=== PATIENT | female | born 1955 | race Caucasian/White ===

== ENCOUNTER 2017-02-12 17:07 | Observation (INO) | payer OTHER ==
[~2017-02-12] VITALS: Ht 152.4 cm; Wt 56.0 kg
[2017-02-12 18:30] VITALS: BP 126/86
[2017-02-12] MEDS: BUSPIRONE 10 MG TABLET PO SCH (21:30)
[2017-02-12] MEDS: LORazepam 2 MG/ML, 1ML IVPush PRN (21:31)
[2017-02-13] MEDS ORDERED: BUSP10TA PO (00:47)
[2017-02-13] MEDS ORDERED: CLON-364 PO (00:53)
[2017-02-13] MEDS ORDERED: LORA2TAB PO (00:55)
[2017-02-13] MEDS ORDERED: NABU500T PO (00:55)
[2017-02-13] MEDS ORDERED: HYDROcodone/APAP 5/325 TABLET PO PRN (01:00)
[2017-02-13] MEDS ORDERED: ONDANSETRON ODT 4 MG PO PRN (01:00)
[2017-02-13 02:15] VITALS: BP 107/73
[2017-02-13 03:30] VITALS: BP 112/76
[2017-02-13] MEDS: LORazepam 2 MG/ML, 1ML IVPush PRN (04:33)
[2017-02-13 06:07] LABS: HEMATOCRIT 39.6 % (34.6-47.8); HEMOGLOBIN 13.7 g/dL (11.7-16.4); WHITE BLOOD COUNT 11.1 x10^3/uL (3.4-10)
[2017-02-13 06:17] LABS: BLOOD UREA NITROGEN 9 mg/dL (7-18)
[2017-02-13 06:28] LABS: ASPARTATE AMINO TRANSFERASE 21 U/L (15-37)
[2017-02-13 07:00] VITALS: BP 110/78
[2017-02-13] MEDS: BUSPIRONE 10 MG TABLET PO SCH ×2 (09:36→20:26)
[2017-02-13] MEDS: CIPROFLOXACIN 500 MG TABLET PO SCH ×2 (09:36→20:26)
[2017-02-13 12:27] VITALS: BP 98/62
[2017-02-13 14:28] LABS: PATH.CAST-FLAG NOT PRESENT; SPERM-FLAG NOT PRESENT; SRC-FLAG NOT PRESENT; XTAL-FLAG NOT PRESENT; YLC-FLAG NOT PRESENT
[2017-02-13] MEDS ORDERED: ZIPRASIDONE 20 MG INJ IM PRN (16:30)
[2017-02-13] MEDS: OMEPRAZOLE 20 MG CAPSULE.DR PO SCH ×2 (16:37→20:26)
[2017-02-13 20:24] VITALS: BP 104/60
[2017-02-13] MEDS: ACETAMINOPHEN 325 MG TABLET PO PRN (20:26)
[2017-02-13] MEDS: TRAZODONE 100MG TABLET PO PRN (23:10)
[2017-02-14 02:00] VITALS: BP 95/58
[2017-02-14] MEDS: LORazepam 2 MG/ML, 1ML IVPush PRN ×2 (04:59→10:39)
[2017-02-14 07:27] VITALS: BP 114/80
[2017-02-14] MEDS: BUSPIRONE 10 MG TABLET PO SCH ×2 (10:39→21:32)
[2017-02-14] MEDS: DIVALPROEX 500 MG TAB.ER.24H PO SCH (10:39)
[2017-02-14] MEDS: CIPROFLOXACIN 500 MG TABLET PO SCH ×2 (10:39→21:32)
[2017-02-14] MEDS: OMEPRAZOLE 20 MG CAPSULE.DR PO SCH ×3 (10:39→21:31)
[2017-02-14] MEDS: DOCUSATE 100 MG CAPSULE PO PRN (10:47)
[2017-02-14 15:23] VITALS: BP 103/69
[2017-02-14] MEDS: ACETAMINOPHEN 325 MG TABLET PO PRN (17:49)
[2017-02-14 19:12] VITALS: BP 102/64
[2017-02-14] MEDS: TRAZODONE 100MG TABLET PO PRN (21:32)
[2017-02-15 01:18] VITALS: BP 114/72
[2017-02-15] MEDS: LORazepam 2 MG/ML, 1ML IVPush PRN (03:18)
[2017-02-15 08:24] VITALS: BP 99/63
[2017-02-15] MEDS: OMEPRAZOLE 20 MG CAPSULE.DR PO SCH ×3 (09:08→22:43)
[2017-02-15] MEDS: DIVALPROEX 500 MG TAB.ER.24H PO SCH (09:08)
[2017-02-15] MEDS: BUSPIRONE 10 MG TABLET PO SCH ×2 (09:08→22:43)
[2017-02-15] MEDS: CIPROFLOXACIN 500 MG TABLET PO SCH ×2 (09:08→22:43)
[2017-02-15] MEDS: ACETAMINOPHEN 325 MG TABLET PO PRN ×2 (09:13→14:19)
[2017-02-15] MEDS ORDERED: LORazepam 1MG TABLET PO PRN (12:00)
[2017-02-15 12:49] VITALS: BP 99/58
[2017-02-15] MEDS: DOCUSATE 100 MG CAPSULE PO PRN (16:30)
[2017-02-15 19:29] VITALS: BP 117/83
[2017-02-16] MEDS ORDERED: ONDANSETRON ODT 4 MG PO PRN (02:00)
[2017-02-16] MEDS ORDERED: HYDROcodone/APAP 5/325 TABLET PO PRN (02:00)
[2017-02-16] MEDS ORDERED: ZIPRASIDONE 20 MG INJ IM PRN (02:00)
[2017-02-16 05:00] VITALS: BP 103/67
[2017-02-16 06:30] VITALS: BP 109/74
[2017-02-16] MEDS: DIVALPROEX 500 MG TAB.ER.24H PO SCH (09:36)
[2017-02-16] MEDS: OMEPRAZOLE 20 MG CAPSULE.DR PO SCH ×3 (09:36→22:00)
[2017-02-16] MEDS: CIPROFLOXACIN 500 MG TABLET PO SCH ×2 (09:37→22:00)
[2017-02-16] MEDS: LORazepam 1MG TABLET PO PRN (09:37)
[2017-02-16] MEDS: BUSPIRONE 10 MG TABLET PO SCH ×2 (09:37→22:00)
[2017-02-16] MEDS: ACETAMINOPHEN 325 MG TABLET PO PRN ×2 (11:16→20:00)
[2017-02-16 13:21] VITALS: BP 128/83
[2017-02-16 21:30] VITALS: BP 118/82
[2017-02-17 01:15] VITALS: BP 124/82
[2017-02-17] MEDS: ACETAMINOPHEN 325 MG TABLET PO PRN ×4 (01:20→22:30)
[2017-02-17] MEDS: LORazepam 1MG TABLET PO PRN ×2 (01:24→17:19)
[2017-02-17 06:46] VITALS: BP 104/68
[2017-02-17] MEDS: CIPROFLOXACIN 500 MG TABLET PO SCH ×2 (08:36→22:30)
[2017-02-17] MEDS: OMEPRAZOLE 20 MG CAPSULE.DR PO SCH ×3 (08:36→22:30)
[2017-02-17] MEDS: BUSPIRONE 10 MG TABLET PO SCH ×2 (08:36→22:30)
[2017-02-17] MEDS: DIVALPROEX 500 MG TAB.ER.24H PO SCH (08:37)
[2017-02-17 12:12] VITALS: BP 97/56
[2017-02-17 19:17] VITALS: BP 100/67
[2017-02-17] MEDS: TRAZODONE 100MG TABLET PO PRN (22:31)
[2017-02-18 07:42] VITALS: BP 126/74
[2017-02-18] MEDS ORDERED: OLANZAPINE 10 MG INJ IM PRN (08:30)
[2017-02-18] MEDS: CIPROFLOXACIN 500 MG TABLET PO SCH ×2 (09:12→20:57)
[2017-02-18] MEDS: OMEPRAZOLE 20 MG CAPSULE.DR PO SCH ×3 (09:12→20:59)
[2017-02-18] MEDS: BUSPIRONE 5 MG TABLET PO SCH (09:12)
[2017-02-18] MEDS: DIVALPROEX 500 MG TAB.ER.24H PO SCH (11:09)
[2017-02-18] MEDS: OLANZAPINE 5 MG TABLET PO SCH (11:09)
[2017-02-18] MEDS: ACETAMINOPHEN 325 MG TABLET PO PRN ×2 (14:48→20:59)
[2017-02-18 15:02] VITALS: BP 112/76
[2017-02-18 17:42] VITALS: BP 112/76
[2017-02-18 20:00] VITALS: BP 108/76
[2017-02-18] MEDS: DIVALPROEX 250 MG TAB.ER.24H PO SCH (21:06)
[2017-02-18] MEDS: TRAZODONE 100MG TABLET PO PRN (22:10)
[2017-02-19 03:15] VITALS: BP 107/77
[2017-02-19] MEDS: ACETAMINOPHEN 325 MG TABLET PO PRN ×3 (03:22→20:34)
[2017-02-19] MEDS: DOCUSATE 100 MG CAPSULE PO PRN (03:48)
[2017-02-19 07:30] VITALS: BP 113/76
[2017-02-19] MEDS: OMEPRAZOLE 20 MG CAPSULE.DR PO SCH ×3 (08:46→20:33)
[2017-02-19] MEDS: OLANZAPINE 5 MG TABLET PO SCH (08:46)
[2017-02-19] MEDS: CIPROFLOXACIN 500 MG TABLET PO SCH ×2 (08:46→20:33)
[2017-02-19] MEDS: BUSPIRONE 5 MG TABLET PO SCH (08:46)
[2017-02-19] MEDS ORDERED: ZIPRASIDONE 20 MG INJ IM PRN (11:30)
[2017-02-19] MEDS ORDERED: ZIPRASIDONE 20MG CAPSULE PO PRN (12:00)
[2017-02-19 20:10] VITALS: BP 110/74
[2017-02-19] MEDS: DIVALPROEX 250 MG TAB.ER.24H PO SCH (20:34)
[2017-02-19] MEDS: TRAZODONE 100MG TABLET PO PRN (22:15)
[2017-02-20] MEDS: ACETAMINOPHEN 325 MG TABLET PO PRN ×2 (03:43→12:32)
[2017-02-20 06:03] LABS: HEMATOCRIT 40.2 % (34.6-47.8); HEMOGLOBIN 13.6 g/dL (11.7-16.4); WHITE BLOOD COUNT 9.3 x10^3/uL (3.4-10)
[2017-02-20 07:24] VITALS: BP 123/78
[2017-02-20] MEDS: OMEPRAZOLE 20 MG CAPSULE.DR PO SCH ×2 (08:03→16:30)
[2017-02-20] MEDS: CIPROFLOXACIN 500 MG TABLET PO SCH (08:04)
[2017-02-20] MEDS: OLANZAPINE 5 MG TABLET PO SCH (08:09)
[2017-02-20] MEDS: BUSPIRONE 5 MG TABLET PO SCH (08:10)
[2017-02-20] MEDS ORDERED: BUSPIRONE 5 MG TABLET PO SCH (09:00)
[2017-02-20] MEDS ORDERED: CLON-364 PO (15:29)
== END 2017-02-20 18:34 | disposition left against medical advice (07) ==
LOC: INTOOBSV 18:12 → 4EST 18:12 → 4WST 02-14 18:05 → 4EST 02-15 01:13 → 4WST 02-17 10:17 → 3E 02-19 03:10
PROVIDERS: ADMIT Internal Medicine; ATTEND Internal Medicine
DX: F23 Brief psychotic disorder (principal); F31.9 Bipolar disorder, unspecified; F41.9 Anxiety disorder, unspecified; E87.1 Hypo-osmolality and hyponatremia; N39.0 Urinary tract infection, site not specified; Z79.899 Other long term (current) drug therapy
CPT/HCPCS: 36415; 70450; 73130; 80053; 80164; 81001; 84439; 84443; 85025; 93005; 96372; 96374; 96376; G0378; J2060; J3486; Q0177